=== PATIENT | female | born 1965 | race Caucasian/White ===

== ENCOUNTER → 2019-08-25 13:13 | Outpatient (CLI) | payer BC, SELFPAY ==
[2019-08-25 13:55] LABS: Add Manual Diff / Slide Review NO; Basophils Absolute Auto 100 /uL (0-100); Eosinophils Absolute Auto 200 /uL (0-450); Eosinophils Percent Auto 3.1 % (2-4); Hemoglobin 14.2 g/dL (12.0-16.0); Lymphocytes Absolute Auto 2100 /uL (1100-4500); Lymphocytes Percent Auto 26.9 % (25-40); Mean Corpuscular HGB Conc 33.8 % (30-36); Mean Corpuscular Hemoglobin 28.3 PG (26-34); Mean Corpuscular Volume 83.7 fL (80-100); Monocytes Absolute Auto 500 /uL (0-900); Neutrophils Absolute Auto 4800 /uL (1500-7000); Platelet Count 192 X10^3/uL (150-400); Red Blood Cell Count 5.02 X10^6/uL (4.0-5.2); Red Cell Distribution Width 13.8 % (11.6-14.8); White Blood Cell Count 7.7 X10^3/uL (4.5-11.0)
[2019-08-25 14:04] LABS: Alanine Aminotransferase 31 IU/L (<35); Albumin Globulin Ratio 1.3 (1.0-2.8); Alkaline Phosphatase 92 U/L (38-126); Aspartate Aminotransferase 24 IU/L (14-36); BUN Creatinine Ratio 23.2 (6-22); Bilirubin Total 0.4 mg/dL (0.2-1.3); Blood Urea Nitrogen 16 mg/dL (7-17); Calcium 10.3 mg/dL (8.4-10.2); Carbon Dioxide 26 mmol/L (22-32); Chloride 106 mmol/L (98-107); Estimated Glomerular Filt Rate > 60.0 mL/min (>60); Glucose 98 mg/dL (70-100); HEMOLYSIS < 15 (0-50); Potassium 4.2 mmol/L (3.4-5.1); Sodium 136 mmol/L (137-145)
[2019-08-25 14:33] LABS: Estradiol, Total 32.5 pg/mL
[2019-08-25 14:56] LABS: Thyroid Stimulating Hormone 0.839 uIU/mL (0.47-4.68)
[2019-08-25 16:31] LABS: Vitamin D 25 Hydroxy (D3) 21.4 ng/mL (30.0-100.0)
== END ==
PROVIDERS: PCP Obstetrics & Gynecology; Referring Provider Obstetrics & Gynecology; Visit Provider Obstetrics & Gynecology
DX: Z00.00 Encounter for general adult medical examination without abnormal findings (principal); Z13.0 Encounter for screening for diseases of the blood and blood-forming organs and certain disorders involving the immune mechanism; E55.9 Vitamin D deficiency, unspecified; R23.2 Flushing; Z13.29 Encounter for screening for other suspected endocrine disorder; Z13.228 Encounter for screening for other metabolic disorders
CPT/HCPCS: 36415; 80053; 82306; 82670; 83001; 84443; 85025

== ENCOUNTER → 2020-01-07 10:25 | Outpatient (CLI) | payer BC, SELFPAY ==
[2020-01-07 11:05] LABS: Cholesterol 196 mg/dL (140-199); HDL Cholesterol 48 mg/dL (40-60); LDL Cholesterol Calculated 109 mg/dL (<100); Triglycerides 195 mg/dL (35-150)
--- NOTE | 2020-01-07 14:05 | DI.MG.S_ITS ---
BILATERAL DIGITAL SCREENING MAMMOGRAM 3D/2D WITH CAD: 01/07/2020 CLINICAL: Routine screening. Comparison is made to exam dated: 12/10/2015 mammogram - outside location. There are scattered fibroglandular elements in both breasts. Current study was also evaluated with a Computer Aided Detection (CAD) system. There is a new irregular asymmetry with a spiculated margin in the left breast middle depth central to the nipple seen on the craniocaudal view only. This was not seen on the prior mammogram and outside exam. No other significant masses, calcifications, or other findings are seen in either breast. There has been no significant interval change in the right breast. IMPRESSION: INCOMPLETE: NEEDS ADDITIONAL IMAGING EVALUATION The new irregular asymmetry in the left breast is indeterminate. A diagnostic mammogram and ultrasound if findings persist is recommended. This exam was interpreted at Station ID: [id number]. NOTE: For mammograms, a report in lay terms will be sent to the patient. Approximately 15% of breast malignancies will not be visualized mammographically. In the management of a palpable breast mass, a negative mammogram must not discourage biopsy of a clinically suspicious lesion. Electronically Signed By: Bernardo Joya acr/:01/08/2020 14:43:15 letter sent: Additional Imaging Needed ACR BI-RADS Category 0: Incomplete 3340F
== END ==
PROVIDERS: PCP Obstetrics & Gynecology; Referring Provider Obstetrics & Gynecology; Visit Provider Obstetrics & Gynecology
DX: Z12.31 Encounter for screening mammogram for malignant neoplasm of breast (principal); Z13.220 Encounter for screening for lipoid disorders; Z00.00 Encounter for general adult medical examination without abnormal findings; Z13.6 Encounter for screening for cardiovascular disorders
CPT/HCPCS: 36415; 77063; 77067; 80061

== ENCOUNTER → 2020-01-31 14:17 | Outpatient (CLI) | payer BC, SELFPAY ==
--- NOTE | 2020-01-31 | DI.MG.S_ITS ---
UNILATERAL LEFT DIGITAL DIAGNOSTIC MAMMOGRAM 3D/2D WITH ADDITIONAL VIEWS: 01/31/2020 CLINICAL: Additional evaluation requested from prior study. Comparison is made to exams dated: 01/07/2020 mammogram - [facility] and 12/10/2015 mammogram - outside location. There are scattered fibroglandular elements in left breast. There is a new irregular asymmetry with a spiculated margin in the left breast middle depth central to the nipple seen on the craniocaudal view only. This is seen in additional views but no associated mass is identified. No other significant masses or calcifications are seen in the breast. IMPRESSION: INCOMPLETE: NEEDS ADDITIONAL IMAGING EVALUATION The new irregular asymmetry in the left breast disperses with no underlying mass but persists. Prior mammogram has similar findings and differences are probably due to technique. This is probably benign however an ultrasound will be performed. This exam was interpreted at Station ID: [id number]. NOTE: For mammograms, a report in lay terms will be sent to the patient. Approximately 15% of breast malignancies will not be visualized mammographically. In the management of a palpable breast mass, a negative mammogram must not discourage biopsy of a clinically suspicious lesion. Electronically Signed By: Bernardo Joya acr/:01/31/2020 14:54:15 ACR BI-RADS Category 0: Incomplete 3340F
--- NOTE | 2020-01-31 14:19 | DI.US.S_ITS ---
PROCEDURE: US BREAST LT LIMITED COMPARISON: None. INDICATIONS: Mammogram 01/07/20 with irregular asymmetry left breast FINDINGS: In the left breast 3 o'clock position, 9 centimeters from the nipple there is a hypoechoic solid round mass with well-circumscribed borders measuring 5 x 4 x 5 millimeters, likely a fibroadenoma. In the left breast 3 o'clock position 9 centimeters from the nipple there is also a cyst with calcifications measuring 3 x 4 x 4 millimeters. In the left breast 3 o'clock position 10 centimeters from the nipple there is a cluster of cysts measuring 7 x 4 x 6 millimeters. IMPRESSION: Findings are probably benign. The solid 5 x 4 x 5 millimeter mass is likely a fibroadenoma or a cyst with internal debris. Recommend ultrasound in 6 months to ensure stability. Dictated by: Bernardo Joya M.D. on 01/31/2020 at 16:38 Approved by: Bernardo Joya M.D. on 01/31/2020 at 16:42
== END ==
PROVIDERS: Referring Provider Obstetrics & Gynecology; Visit Provider Obstetrics & Gynecology
DX: R92.8 Other abnormal and inconclusive findings on diagnostic imaging of breast (principal); N64.89 Other specified disorders of breast; N63.25 Unspecified lump in the left breast, overlapping quadrants; N60.02 Solitary cyst of left breast
CPT/HCPCS: 76642; 77065; G0279

== ENCOUNTER → 2020-09-28 12:33 | Outpatient (CLI) | payer BC, SELFPAY ==
--- NOTE | 2020-09-28 12:35 | DI.MG.S_ITS ---
UNILATERAL LEFT DIGITAL DIAGNOSTIC MAMMOGRAM 3D/2D SHORT-TERM FOLLOW-UP: 09/28/2020 CLINICAL: Short term follow up for the left breast. Comparison is made to exams dated: 01/31/2020 ultrasound, 01/31/2020 mammogram, and 01/07/2020 mammogram - [facility]. There are scattered fibroglandular elements in left breast. There is an irregular low density asymmetry with an indistinct margin in the left breast posterior depth central to the nipple seen on the craniocaudal view only. This is not significantly changed. No other significant masses or calcifications are seen in the breast. IMPRESSION: INCOMPLETE: NEEDS ADDITIONAL IMAGING EVALUATION The irregular low density asymmetry in the left breast is indeterminate. An ultrasound is recommended. Ultrasound will be performed immediately following the current exam. This exam was interpreted at Station ID: [id number]. NOTE: For mammograms, a report in lay terms will be sent to the patient. Approximately 15% of breast malignancies will not be visualized mammographically. In the management of a palpable breast mass, a negative mammogram must not discourage biopsy of a clinically suspicious lesion. Electronically Signed By: Socrates Chanel M.D. ddp/:09/28/2020 13:12:10 ACR BI-RADS Category 0: Incomplete 3340F
--- NOTE | 2020-09-28 12:35 | DI.US.S_ITS ---
LIMITED ULTRASOUND OF LEFT BREAST: 09/28/2020 CLINICAL: Patient returns for a 6 month follow up of the left breast. Comparison is made to exams dated: 09/28/2020 mammogram, 01/31/2020 ultrasound, 01/31/2020 mammogram, 01/07/2020 mammogram - [facility], and 12/10/2015 mammogram - outside location. Color flow and real-time ultrasound of the left breast 3 o'clock region were performed on the areas of interest. There is a 0.5 cm x 0.3 cm x 0.5 cm oval mass with a circumscribed margin in the left breast at 3 o'clock middle depth 9 cm from the nipple. This oval mass is hypoechoic with a well-defined boundary and internal echoes. This abnormality is not significantly changed and may correlate with mammography findings. Color flow imaging demonstrates that there is no vascularity present. There also is a 0.5 cm x 0.4 cm x 0.4 cm oval cyst in the left breast at 3 o'clock middle depth 9 cm from the nipple. This oval cyst is hypoechoic with a well-defined boundary and internal echoes. This abnormality is not significantly changed. Color flow imaging demonstrates that there is no vascularity present. Additionally, there is a 0.5 cm x 0.4 cm x 0.3 cm cluster of oval cysts with a septated internal wall in the left breast at 3 o'clock posterior depth 10 cm from the nipple. This cluster of oval cysts is hypoechoic. Color flow imaging demonstrates that there is no vascularity present. A small anechoic simple cyst measuring up to 0.4 cm is also noted at 0 o'clockd 3 cm from the nipple. IMPRESSION: PROBABLY BENIGN The 0.5 cm x 0.3 cm x 0.5 cm oval mass in the left breast at 3 o'clock middle depth likely represents a complicated cyst or a lymph node and is probably benign. Follow-up mammogram and ultrasound in 6 months is recommended. The 0.5 cm x 0.4 cm x 0.4 cm oval cyst in the left breast at 3 o'clock middle depth is consistent with a complicated cyst and is probably benign. Follow-up mammogram and ultrasound in 6 months is recommended. The 0.5 cm x 0.4 cm x 0.3 cm cluster of oval cysts in the left breast at 3 o'clock posterior depth is probably benign. A follow-up ultrasound in 6 months is recommended. A follow-up mammogram and an ultrasound in 6 months are recommended to demonstrate stability. This exam was interpreted at Station ID: [id number]. Electronically Signed By: Socrates lerma/:09/28/2020 14:29:56 letter sent: Followup Recommended Ultrasound BI-RADS: 3 Probably benign
== END ==
PROVIDERS: Referring Provider Obstetrics & Gynecology; Visit Provider Obstetrics & Gynecology
DX: R92.8 Other abnormal and inconclusive findings on diagnostic imaging of breast (principal); N63.25 Unspecified lump in the left breast, overlapping quadrants; N60.02 Solitary cyst of left breast
CPT/HCPCS: 76642; 77065; G0279

== ENCOUNTER → 2021-04-04 11:59 | Outpatient (CLI) | payer BC, SELFPAY ==
--- NOTE | 2021-04-04 12:00 | DI.MG.S_ITS ---
BILATERAL DIGITAL DIAGNOSTIC MAMMOGRAM 3D/2D: 04/04/2021 CLINICAL: Short term follow up for the left breast. Comparison is made to exams dated: 09/28/2020 ultrasound, 09/28/2020 mammogram, 01/31/2020 ultrasound, 01/31/2020 mammogram, and 01/07/2020 mammogram - [facility]. There are scattered fibroglandular elements in both breasts. Redemonstration of previously described irregular low density asymmetry with an indistinct margin in the left breast posterior depth central to the nipple seen on the craniocaudal view only. This is less prominent. No other significant masses, calcifications, or other findings are seen in either breast. IMPRESSION: INCOMPLETE: NEEDS ADDITIONAL IMAGING EVALUATION The irregular low density asymmetry in the left breast is indeterminate. An ultrasound is recommended for further evaluation and is scheduled to immediately follow this examination. This exam was interpreted at Station ID: [id number]. NOTE: For mammograms, a report in lay terms will be sent to the patient. Approximately 15% of breast malignancies will not be visualized mammographically. In the management of a palpable breast mass, a negative mammogram must not discourage biopsy of a clinically suspicious lesion. Electronically Signed By: Aba Cedillo M.D. aty/:04/04/2021 12:43:27 ACR BI-RADS Category 0: Incomplete 3340F
--- NOTE | 2021-04-04 12:00 | DI.US.S_ITS ---
ULTRASOUND OF LEFT BREAST: 04/04/2021 CLINICAL: 6 month follow-up of cysts. Comparison is made to exams dated: 04/04/2021 mammogram, 09/28/2020 ultrasound, 09/28/2020 mammogram, 01/31/2020 ultrasound, 01/31/2020 mammogram, and 01/07/2020 mammogram - [facility]. Color flow and real-time ultrasound of the left breast were performed. Bass scale images of the real-time examination were reviewed. There is a 0.4 cm x 0.2 cm x 0.3 cm oval mass with a circumscribed margin in the left breast at 3 o'clock middle depth 9 cm from the nipple. This oval mass is hypoechoic with a well-defined boundary and internal echoes. This abnormality is less prominent and correlates with mammography findings. Color flow imaging demonstrates that there is no vascularity present. There also is a 0.3 cm x 0.2 cm x 0.3 cm oval cyst in the left breast at 3 o'clock middle depth 9 cm from the nipple. This oval cyst is hypoechoic with a well-defined boundary and internal echoes. This abnormality is decreased in size and less prominent. Color flow imaging demonstrates that there is no vascularity present. The previously described 0.5 cm x 0.4 cm x 0.3 cm cluster of oval cysts with a septated internal wall in the left breast at 3 o'clock posterior depth 10 cm from the nipple is no longer seen which is consistent with a benign process. IMPRESSION: PROBABLY BENIGN The 0.4 cm x 0.2 cm x 0.3 cm oval mass in the left breast at 3 o'clock middle depth likely represents a complicated cyst or a lymph node and is probably benign. The 0.3 cm x 0.2 cm x 0.3 cm oval cyst in the left breast at 3 o'clock middle depth is consistent with a complicated cyst and is probably benign. 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 Findings and recommendations were conveyed to the patient during today's evaluation. This exam was interpreted at Station ID: [id number]. Electronically Signed By: Aba Cedillo M.D. aty/:04/04/2021 13:34:04 letter sent: Followup Recommended Ultrasound BI-RADS: 3 Probably benign
== END ==
PROVIDERS: PCP Physician Assistant Medical; Referring Provider Obstetrics & Gynecology; Visit Provider Obstetrics & Gynecology
DX: R92.8 Other abnormal and inconclusive findings on diagnostic imaging of breast (principal); N60.02 Solitary cyst of left breast
CPT/HCPCS: 76642; 77066; G0279

== ENCOUNTER → 2022-07-25 11:56 | Outpatient (CLI) | payer BC, SELFPAY ==
--- NOTE | 2022-07-25 11:57 | DI.US.S_ITS ---
ULTRASOUND OF LEFT BREAST: 07/25/2022 CLINICAL: 12 Month Follow up of breast mass at 3 [facility]. Comparison is made to exams dated: 07/25/2022 mammogram, 04/04/2021 ultrasound, 04/04/2021 mammogram, 09/28/2020 ultrasound, 09/28/2020 mammogram, and 01/31/2020 ultrasound - [facility]. Color flow and real-time ultrasound of the left breast were performed. Bass scale images of the real-time examination were reviewed. No significant abnormalities were seen sonographically in the left breast. IMPRESSION: BENIGN There is no abnormality seen in the left breast to correspond with the previously described mammography finding and ultrasound finding at 3 o'clock. Overall this finding has been followed for over two years and is consistent with a benign process. Return to annual mammogram screening schedule is recommended. Findings and recommendations were conveyed to the patient during today's evaluation. This exam was interpreted at Station ID: [id number]. Electronically Signed By: Aba Cedillo M.D. at/:07/29/2022 10:33:16 letter sent: Normal Exam Ultrasound BI-RADS: 2 Benign
--- NOTE | 2022-07-25 11:57 | DI.MG.S_ITS ---
BILATERAL DIGITAL DIAGNOSTIC MAMMOGRAM 3D/2D: 07/25/2022 CLINICAL: Short term follow up of the left breast, due for bilateral imaging. Comparison is made to exams dated: 04/04/2021 mammogram, 01/07/2020 mammogram - [facility], and 12/10/2015 mammogram - outside location. There are scattered areas of fibroglandular density in both breasts (category b / 25%-50% glandular tissue). Redemonstration of previously described irregular low density asymmetry with an indistinct margin in the left breast posterior depth central to the nipple seen on the craniocaudal view only. This is less prominent. No other significant masses, calcifications, or other findings are seen in either breast. IMPRESSION: INCOMPLETE: NEEDS ADDITIONAL IMAGING EVALUATION The irregular low density asymmetry in the left breast is indeterminate. An ultrasound is recommended for further evaluation and is scheduled to immediately follow this examination. Based on the Tyrer Cuzick model (a risk assessment model) the patient's lifetime risk is 6.4% and her 10 year risk is 2.1%. According to the ACR, ACS, and NCCN guidelines, an annual breast MRI exam along with mammogram is recommended if the patient's lifetime risk is 20% or greater. This exam was interpreted at Station ID: [id number]. NOTE: For mammograms, a report in lay terms will be sent to the patient. Approximately 15% of breast malignancies will not be visualized mammographically. In the management of a palpable breast mass, a negative mammogram must not discourage biopsy of a clinically suspicious lesion. Electronically Signed By: Aba Cedillo M.D. aty/:07/29/2022 10:34:39 ACR BI-RADS Category 0: Incomplete 3340F
== END ==
PROVIDERS: PCP Physician Assistant Medical; Referring Provider Obstetrics & Gynecology; Visit Provider Obstetrics & Gynecology
DX: N63.25 Unspecified lump in the left breast, overlapping quadrants (principal)
CPT/HCPCS: 76642; 77066; G0279

== ENCOUNTER → 2025-01-13 11:14 | Outpatient (CLI) | payer OTHER, SELFPAY ==
--- NOTE | 2025-01-13 11:18 | DI.MG.S_ITS ---
MM screening mammo BI: 01/13/2025. BI-RADS: 1 CLINICAL: 59-year old female for bilateral screening mammogram. Tyrer-Cuzick lifetime risk of 9.5%. No personal or first-degree family history of breast cancer. PRIOR EXAMS 07/25/2022, 04/04/2021, 09/28/2020, 01/31/2020. MAMMOGRAPHY TECHNIQUE: 2D and 3D (tomosynthesis) digital mammographic views obtained, with additional images as needed for full coverage. Current study was also evaluated with a Computer Aided Detection (CAD) system. DENSITY B. There are scattered areas of fibroglandular density. MAMMOGRAPHY FINDINGS Bilateral: No suspicious mass, asymmetry, microcalcification, or other abnormality seen. IMPRESSION: * No evidence of malignancy. RECOMMENDATIONS Bilateral * Annual screening mammography. OVERALL ASSESSMENT CATEGORY BI-RADS-1: Negative. The [employer] recommends annual screening mammography beginning at age 40 for women with average risk of breast cancer. ELECTRONICALLY SIGNED: Lamar Amador M.D. on 01/16/2025 at 04:43:29 PM PT Interpreting Station ID: [id number]
== END ==
PROVIDERS: PCP Physician Assistant Medical; Referring Provider Physician Assistant Medical; Visit Provider Physician Assistant Medical
DX: Z12.31 Encounter for screening mammogram for malignant neoplasm of breast (principal)
CPT/HCPCS: 77063; 77067